=== PATIENT | female | born 1985 | race Caucasian/White ===

== ENCOUNTER 2017-10-27 16:19 | Inpatient (IN) | payer MEDICAID ==
[2017-10-27] VITALS (68 sets, daily range): BP systolic 136; BP diastolic 83; PULSE 59–125; TEMP 98.2–98.4
[~2017-10-27] VITALS: Ht 152.4 cm; Wt 92.5 kg
[2017-10-27] MEDS ORDERED: LACTATED RINGER'S 1000 ML INJ 1,000 ML IV PRN (17:27)
[2017-10-27] MEDS ORDERED: OXYTOCIN 30 UNITS-500ML PREMIX 500 ML IV ONE (17:30)
[2017-10-27] MEDS ORDERED: LIDOCAINE HCL 1% 50 ML VIAL I-DERMAL PRN (17:30)
[2017-10-27] MEDS ORDERED: SODIUM CHLORID 0.9% 500 ML INJ 500 ML IV PRN (17:30)
[2017-10-27] MEDS ORDERED: ONDANSETRON ODT 4 MG TAB PO PRN (17:30)
[2017-10-27] MEDS ORDERED: LIDOCAINE HCL 1% 50 ML VIAL INFIL PRN (17:30)
[2017-10-27] MEDS ORDERED: OXYTOCIN 30 UNITS-500ML PREMIX 500 ML IV PRN (17:30)
[2017-10-27] MEDS: LACTATED RINGER'S 1000 ML INJ 1,000 ML IV SCH (17:32)
[2017-10-27] MEDS ORDERED: SODIUM CHLOR 0.9% 1000 ML INJ 1,000 ML IV PRN (17:47)
--- NOTE | 2017-10-27 18:30 | HHI.HP ---
HPI Chief Complaint Rupture of membranes Date Seen: October 27, 2017 Travel History International Travel<30 Days: No Contact w/Intl Traveler<30Days: No Known Affected Area: No History of Present Illness HPI 32-year-old G1 at 39 weeks and 2 days by a 12 week ultrasound with estimated due date of 11/01/2017 here today for rupture membranes, she says that she has been leaking since 6 AM today, however upon presentation her water grossly ruptured at 4:45 PM, she has occasional contractions that are painful, no heavy vaginal bleeding, no fever chills, denies headache, epigastric pain or right upper quadrant pain. Her has been uncomplicated per her report, the ACOG scanned in records are somewhat indecipherable due to handwriting History Past Medical History Narrative Medical None Obstetric History Obstetric History G1 Past Surgical History Narrative Surgical None Family History Narrative Family History None pertinent Social History Alcohol Use: No Tobacco Use: No Substance Abuse: No Allergies-Medications (Allergen,Severity, Reaction): Coded Allergies: No Known Allergies (Verified Allergy, Unknown, 10/27/17) Narrative Medication vitamin Review of Systems General / Constitutional: No: Fever, Weight Gain, Chills, Other Eyes: No: Diploplia, Blurred Vision, Visual changes, Pain, Photophobia HENT: No: Headaches, Vertigo, Lightheadedness Cardiovascular: No: Irregular Rhythm, Chest Pain or Discomfort, Palpitations, Tachycardia, Syncope, Varicosities, Edema, Cyanosis Respiratory: No: Cough, Short of Breath, Other Gastrointestinal: No: Nausea, Vomiting, Diarrhea Genitourinary: No: Decreased Urinary Output, Oliguria Musculoskeletal: No: Limited ROM, Weakness, Cramping, Edema, Pain Skin: No Rash, No Itching, No Dryness, No Lumps, No Change in Pigmentation, No Change in Nails, No Alopecia, No Lesions Neurologic: No: Weakness, Dizziness, Syncope, Focal Abnormalities, Coordination Problem, Headache, Slurred Speech, Seizures Psychiatric: No: Depression, Suicidal Ideations, Homicidal Ideation Endocrine: No: Heat Intolerance, Cold Intolerance, Polydipsia, Polyuria, Other Physical Exam Vital Signs Date Time Temp Pulse Resp B/P (MAP) Pulse Ox O2 Delivery O2 Flow Rate FiO2 10/27/17 17:55 88 10/27/17 17:50 89 10/27/17 17:45 91 5/18/18 17:40 89 10/27/17 17:35 90 10/27/17 17:30 97 10/27/17 17:25 92 10/27/17 17:20 89 Narrative Vitals: Temperature 98.1, pulse 90, respiratory rate 18, blood pressure 150/86 GENERAL: Well-nourished, well-developed patient. SKIN: Warm and dry. HEAD: Normocephalic and atraumatic. EYES: No scleral icterus. No injection or drainage. ENT: No nasal drainage noted. Mucous membranes pink. Airway patent. NECK: Supple, trachea midline. No JVD. CARDIOVASCULAR: Regular rate and rhythm without murmurs, gallops, or rubs. RESPIRATORY: Breath sounds equal bilaterally. No accessory muscle use. ABDOMEN/GI: Abdomen soft, non-tender, bowel sounds present, no rebound, no guarding Gravid GENITOURINARY: Grossly ruptured, 3 cm/70% effaced/-2 station, BS of 7, FHT's: 120s, moderate variability, accelerations present, no decelerations Tocometry: Contractions every 8 minutes EXTREMITIES: No cyanosis or edema. BACK: Nontender without obvious deformity. No CVA tenderness. NEUROLOGICAL: Awake and alert. Motor and sensory grossly within normal limits. Normal speech. Caprini VTE Risk Assessment Caprini VTE Risk Assessment: Mod/High Risk (score >= 2) Caprini Risk Assessment Model Point Value = 1 Point Value = 2 Point Value = 3 Point Value = 5 Age 41-60 Minor surgery BMI > 25 kg/m2 Swollen legs Varicose veins or History of unexplained or recurrent spontaneous Oral contraceptives or hormone replacement Sepsis (< 1 month) Serious lung disease, including pneumonia (< 1 month) Abnormal pulmonary function Acute myocardial infarction Congestive heart failure (< 1 month) History of inflammatory bowel disease Medical patient at bed rest Age 61-74 Arthroscopic surgery Major open surgery (> 45 min) Laparoscopic surgery (> 45 min) Malignancy Confined to bed (> 72 hours) Immobilizing plaster cast Central venous access Age >= 75 History of VTE Family history of VTE Factor V Leiden Prothrombin [id number] Lupus anticoagulant Anticardiolipin antibodies Elevated serum homocysteine Heparin-induced thrombocytopenia Other congenital or acquired thrombophilia Stroke (< 1 month) Elective arthroplasty Hip, pelvis, or leg fracture Acute spinal cord injury (< 1 month) Prophylaxis Regimen Total Risk Factor Score Risk Level Prophylaxis Regimen 0-1 Low Early ambulation 2 Moderate Order ONE of the following: *Sequential Compression Device (SCD) *Heparin 5000 units SQ BID 3-4 Higher Order ONE of the following medications: *Heparin 5000 units SQ TID *Enoxaparin/Lovenox 40 mg SQ daily (WT < 150 kg, CrCl > 30 mL/min) *Enoxaparin/Lovenox 30 mg SQ daily (WT < 150 kg, CrCl > 10-29 mL/min) *Enoxaparin/Lovenox 30 mg SQ BID (WT < 150 kg, CrCl > 30 mL/min) AND/OR *Sequential Compression Device (SCD) 5 or more Highest Order ONE of the following medications: *Heparin 5000 units SQ TID (Preferred with Epidurals) *Enoxaparin/Lovenox 40 mg SQ daily (WT < 150 kg, CrCl > 30 mL/min) *Enoxaparin/Lovenox 30 mg SQ daily (WT < 150 kg, CrCl > 10-29 mL/min) *Enoxaparin/Lovenox 30 mg SQ BID (WT < 150 kg, CrCl > 30 mL/min) AND *Sequential Compression Device (SCD) Data Data Vital Signs Reviewed: Yes Orders Orders Ob (2e) Additional Admit Info (10/27/17 16:36) Intake + Output Q6H (10/27/17 17:26) Notify Parameters (10/27/17 17:) Cbc No Diff, Includes Plts (10/28/17 06:00) Comprehensive Metabolic Panel (10/28/17 06:00) Protein Creat Ratio, Random Ur (10/27/17 17:26) Admit To Inpatient (10/27/17 ) Code Status (10/27/17 17:27) Vital Signs (Adult) .Per protocol (10/27/17 17:) Heart (10/27/17:) Amnioinfusion (10/27/17 17:) Urinary Catheter Management .ONCE (10/27/17 17:) Diet Liquid (10/27/17 Dinner) Lactated Ringer's 1000 Ml Inj (Lr 1000 M (10/27/17 17:27) Lactated Ringer's 1000 Ml Inj (Lr 1000 M (10/27/17 17:27) Sodium Chlorid 0.9% 500 Ml Inj (Ns 500 M (10/27/17 17:30) Sodium Chlor 0.9% 1000 Ml Inj (Ns 1000 M (10/27/17 17:47) Lidocaine 1% Inj (50 Ml) (Xylocaine 1% I (10/27/17 17:30) Fentanyl Inj (Fentanyl Inj) (10/27/17 17:30) Fentanyl Inj (Fentanyl Inj) (10/27/17 17:30) Hold Clot (10/27/17:) Abo/Rh Blood Type (10/27/17:) Ob/Psych Drug Screen, Urine (10/27/17) Type And Screen (10/27/17) Resp Oxygen Non Rebreathe Mask (10/27/17 ) ^ Epidural / Intrathecal Infus (10/27/17:) Oxytocin 30 Units-500ml Premix (Pitocin (10/27/17 17:30) Lidocaine 1% Inj (50 Ml) (Xylocaine 1% I (10/27/17 17:) Light Mineral Oil (Muri-Lube Oil) (10/27/17 17:30) Inpatient Certification (10/27/17 ) Specimen To Be Collected PRN (10/27/17:) Ondansetron Odt (Zofran Odt) (10/27/17 17:30) ^ Non Stress Test (10/27/17:29) Response To Medication .Post New Med Administration, Reaction (10/27/17 17:29) ^ Discontinue Medication (10/27/17:) Oxytocin 30 Units-500ml Premix (Pitocin (10/27/17 17:30) Group B Strep: Negative Labs Laboratory Tests Test 10/27/17 17: Urine Random Creatinine 34 Urine Random Total Protein 9 Urine Protein/Creatinine Ratio 0.26 Urine Opiates Screen NEG Urine Barbiturates Screen NEG Urine Amphetamines Screen NEG Urine Benzodiazepines Screen NEG Urine Cocaine Screen NEG Urine Cannabinoids Screen NEG labs Blood type O-, antibody negative, baseline hemoglobin 13.1, varicella immune, rubella immune, VDRL nonreactive, urine culture not indicated, hepatitis B surface antigen nonreactive, HIV negative, gonorrhea and chlamydia negative, cystic fibrosis screening negative, quad screen negative, sickle cell screen negative, UDS negative, TSH 0.36. One-hour Glucola 132, GBS negative. Assessment/Plan Assessment and Plan 32-year-old G1 at 39w2d by 12w US (SAL 11/01/2017), pt goes by "Mary Beth" her FOB is Shadi 1. IUP: Category 1 tracing -Cephalic by exam, GBS negative, EFW 8 pounds -Male fetus - EFW (10/18) = 3488g (84%), AC 79%, Ant placenta. 2. SROM/labor: BS of 7, patient appears comfortable in bed, rare contractions, discussed expectant management and my recommendation for augmentation, patient desires to wait at this time, suggested 4 hours and if no change begin Pitocin. Clear liquids 3. Rh negative: Patient states she is status post program at around 28 weeks. 4. Elevated blood pressure: No issues with blood pressure outside of or during this up to this point, patient has no signs or symptoms of preeclampsia, will collect HELLP labs and P:C. Continue to trend blood pressures, discussed severe criteria and possible need for magnesium for blood pressure interventions. Ryland Serrano MD October 27, 2017 18:30
[2017-10-27 19:35] LABS: HEMATOCRIT 36.6 % (35.0-46.0); HEMOGLOBIN 12.3 GM/DL (11.6-15.3); MEAN CELL VOLUME 89.4 FL (80.0-100.0); MEAN CORPUSCULAR HEMOGLOBIN 30.1 PG (27.0-34.0); MEAN CORPUSCULAR HGB CONC 33.7 % (32.0-36.0); MEAN PLATELET VOLUME 10.7 FL (7.0-11.0); PLATELET COUNT 213 TH/MM3 (150-450); RED CELL DISTRIBUTION WIDTH 12.6 % (11.6-17.2); WHITE BLOOD COUNT 13.9 TH/MM3 (4.0-11.0)
[2017-10-27 20:03] LABS: ALBUMIN 2.9 GM/DL (3.4-5.0); AST (GOT) 22 U/L (15-37); BLOOD UREA NITROGEN 8 MG/DL (7-18); CALCIUM 8.7 MG/DL (8.5-10.1); CHLORIDE 109 MEQ/L (98-107); CREATININE 0.61 MG/DL (0.50-1.00); GLOMERULAR FILTRATION RATE 114 ML/MIN (>89); GLUCOSE,RANDOM 74 MG/DL (74-106); SODIUM (NA) 142 MEQ/L (136-145)
[2017-10-27 20:04] LABS: ALT (GPT) 21 U/L (10-53)
[2017-10-27 20:06] LABS: ALKALINE PHOSPHATASE 140 U/L (45-117); TOTAL BILIRUBIN ADULT 0.3 MG/DL (0.2-1.0)
[2017-10-27] MEDS ORDERED: fentaNYL 2MCG-BUPIV 0.125% INJ 100 ML ONE (23:58)
[2017-10-27] MEDS ORDERED: ePHEDrine/NS 25 MG/5 ML SYRINGE ONE (23:58)
[2017-10-28] VITALS (100 sets, daily range): BP systolic 95–156; BP diastolic 61–94; PULSE 68–148; RESP 16–20; TEMP 97.7–98.7; O2SAT 97–100
[2017-10-28] MEDS: LACTATED RINGER'S 1000 ML INJ 1,000 ML IV SCH ×2 (00:03→01:04)
[2017-10-28] MEDS ORDERED: BUPIVACAINE HCL PF 0.25% 10 ML VIAL ONE (00:10)
[2017-10-28] MEDS ORDERED: ePHEDrine/NS 25 MG/5 ML SYRINGE ONE (00:11)
[2017-10-28] MEDS ORDERED: fentaNYL 2MCG-BUPIV 0.125% 100 ML EPIDURAL PRN (01:15)
[2017-10-28] MEDS ORDERED: ePHEDrine/NS 25 MG/5 ML SYRINGE IV PUSH PRN (01:15)
[2017-10-28] MEDS ORDERED: DO NOT ADMINISTER ANTICOAGULANTS PRN (01:15)
[2017-10-28] MEDS ORDERED: NO SYSTEM NARCOTICS PRN (01:15)
[2017-10-28] MEDS ORDERED: LIDOCAINE HCL 1% PF 30 ML VIAL ONE (04:51)
[2017-10-28] MEDS: MINERAL OIL 10 ML VIAL TOPICAL PRN (06:38)
[2017-10-28] MEDS ORDERED: IBUP-232 PO (06:58)
--- NOTE | 2017-10-28 06:58 | HHI.DCPOC ---
Discharge Care Plan Diagnosis: (1) 39 weeks gestation of (2) Normal vaginal delivery Your Health Problems Are: Vaginal delivery Report Symptoms to Your Doctor -Temperature above 100.5 degrees -Redness, of incision or excessive or foul smelling drainage -Unusual pain or calf pain -Increased vaginal bleeding -Painful or difficulty urinating -Feelings of extreme sadness or anxiety after 2 weeks Goals to Promote Your Health * To prevent worsening of your condition and complications * To maintain your health at the optimal level Directions to Meet Your Goals Take your medications as prescribed Follow your dietary instruction Follow activity as directed Ensure plenty of rest for recovery Drink fluids for hydration Keep your appointments as scheduled Take your immunizations and boosters as scheduled If your symptoms worsen call your PCP, if no PCP go to Urgent Care Center or Emergency Room Smoking is Dangerous to Your Health. Avoid second hand smoke Call the 24-hour crisis hotline for domestic abuse at Ryland Serrano MD October 28, 2017 06:58
[2017-10-28] MEDS ORDERED: oxyCODONE/ACETAMINOPHEN 5 MG/325 MG TAB PO PRN ×2 (07:00)
[2017-10-28] MEDS ORDERED: SODIUM CHLORIDE 0.9% FLUSH 10 ML FLUSH IV FLUSH PRN (07:00)
[2017-10-28] MEDS ORDERED: ZOLPIDEM TARTRATE 5 MG TAB PO PRN (07:00)
[2017-10-28] MEDS ORDERED: BENZOCAINE 20% TOPICAL SPRAY 60 ML CAN TOPICAL PRN (07:00)
[2017-10-28] MEDS ORDERED: ALUMINUM/MAGNESIUM/SIMETH 30 ML CUP PO PRN (07:00)
[2017-10-28] MEDS ORDERED: ONDANSETRON ODT 4 MG TAB PO PRN (07:00)
[2017-10-28] MEDS ORDERED: WITCH HAZEL 50%/GLYCERIN 12.5% 40 PAD JAR TOPICAL PRN (07:00)
[2017-10-28] MEDS ORDERED: OXYTOCIN 30 UNITS-500ML PREMIX 500 ML IV SCH (07:00)
--- NOTE | 2017-10-28 07:03 | PD.OB.DELI ---
Weeks gestation: 39 (39 weeks and 3 days) Pt started active labor?: Yes Medical induction of labor?: No Artificial rupture of membrane: No Anesthesia: Epidural, Lidocaine local to perineum (5 cc of 1% lidocaine without epinephrine) Episiotomy: None Vaginal Delivery: Normal, Spontaneous Presentation: Occiput anterior, Vertex Nuchal Cord: x1 (Reduced after delivery) Delayed cord clamping (45 sec): Yes Shoulder Dystocia: Other (No dystocia) : Male, Single Delivery date: October 28, 2017 Delivery time: 06:25 One Minute : 8 Five Minute : 9 Weight: 7 lbs. 14 oz. Placenta: Spontaneous delivery, Intact, 3 vessel cord Laceration: 1 deg (In addition to first-degree, a periurethral laceration that extended cephalad towards the clitoral granger and slightly into the urethral meatus) Repair: Vicryl running Estimated blood loss: 300cc Additional Information Diagnoses: 1. Intrauterine at 39 weeks and 3 days 2. Rh negative 3. Gestational hypertension Counts: Correct 2 at the end of the procedure Description of procedure: The patient began pushing after the bed was broken down, the head upon was allowed to restitute naturally for delivery with a supported perineum, with gentle downward guidance the anterior shoulder was delivered followed by gentle upper guidance for the posterior shoulder, the torso and lower extremities were delivered with ease and with continued perineal support. The had spontaneous cry and was placed on mom's abdomen for skin to skin contact, we allowed delayed cord clamping. After the cord was clamped and cut, cord blood was obtained. Pitocin was bolused and with fundal massage the placenta was delivered, there is minimal uterine bleeding and uterus was firm. The perineum, vagina and cervix were inspected and found a first-degree which was repaired in typical fashion, the periurethral was repaired after sterilely placing a red rubber catheter prior to the repair the urethra was patent and repair hemostatic following. The patient tolerated the procedure well and was left in the birthing suite with her . Ryland Serrano MD October 28, 2017 07:03
[2017-10-28] MEDS: SODIUM CHLORIDE 0.9% FLUSH 10 ML FLUSH IV FLUSH SCH ×2 (09:00→21:14)
[2017-10-28] MEDS: IBUPROFEN 800 MG TAB PO PRN ×2 (09:55→18:11)
[2017-10-28] MEDS ORDERED: MEASLES, MUMPS, RUBELLA VACCINE 0.5 ML VIAL SQ ONE (16:00)
[2017-10-28] MEDS ORDERED: DIPHTH/TETANUS/ACEL PERTUSSIS (BOOSTER) 0.5 ML VIAL/PFS IM ONE (16:00)
[2017-10-28] MEDS: ACETAMINOPHEN 325 MG TAB PO PRN (16:51)
[2017-10-28] MEDS: DOCUSATE SODIUM 50 MG/SENNA 8.6 MG TAB PO PRN (21:13)
[2017-10-29] MEDS: SODIUM CHLORIDE 0.9% FLUSH 10 ML FLUSH IV FLUSH SCH (09:00)
--- NOTE | 2017-10-29 09:29 | HHI.OB ---
Subjective Post Day: 1 Remarks doing well, pain controlled, VB < menses, no complaints, denies JAIMES, blurry vision, epigastric pain or RUQ pain. Objective Vitals/I&O Vital Signs Date Time Temp Pulse Resp B/P (MAP) Pulse Ox O2 Delivery O2 Flow Rate FiO2 10/28/17 23:22 83 142/79 (100) 10/28/17 23:22 98.3 18 97 10/28/17 20:30 98.3 86 18 143/85 (104) 97 Objective Remarks GENERAL: Well-nourished, well-developed patient. CARDIOVASCULAR: Regular rate and rhythm without murmurs, gallops, or rubs. RESPIRATORY: Breath sounds equal bilaterally. No accessory muscle use. ABDOMEN/GI: Abdomen soft, non-tender. Fundus: Firm, non-tender at umbilicus. GENITOURINARY: Light to moderate bleeding. EXTREMITIES: No cyanosis or edema, non-tender, without signs of DVT. Medications and IVs Current Medications Medications (Trade) Dose Ordered Sig/Renée Route Start Time Stop Time Status Last Admin (NS Flush) 2 ml BID IV FLUSH 10/28/17 09:00 10/28/17 21:14 (NS Flush) 2 ml UNSCH PRN IV FLUSH 10/28/17 07:00 (Tylenol) 650 mg Q4H PRN PO 10/28/17 07:00 10/28/17 16:51 (Motrin) 800 mg Q8H PRN PO 10/28/17 07:00 10/28/17 18:11 (Percocet 5-325 Mg) 1 tab Q4H PRN PO 10/28/17 07:00 (Percocet 5-325 Mg) 2 tab Q4H PRN PO 10/28/17 07:00 (Americaine 20% Top Spr) 1 spray Q4H PRN TOPICAL 10/28/17 07:00 10/28/17 18:11 (Tucks Pads) 1 applic QID PRN TOPICAL 10/28/17 07:00 10/28/17 18:11 (Ingrid-Colace) 2 tab Q12H PRN PO 10/28/17 07:00 10/28/17 21:13 (Ambien) 5 mg HS PRN PO 10/28/17 07:00 (Mag-Al Plus Susp Liq) 15 ml Q8H PRN PO 10/28/17 07:00 (Zofran Odt) 4 mg Q6H PRN PO 10/28/17 07:00 Assessment/Plan Assessment and Plan 32-year-old s/p at 39w2d 1. PPD #1: AF, VSS, discussed expectations, precautions and follow up. May d/c home today if baby cleared, if not then d/c tomorrow. -Male fetus, does not desire circ 2. GHTN: BPs mild range / normotensive since delivery, discussed PREC precautions, FU 1 week for visit in office. 3. Rh negative: Rhogam per protocol Ryland Serrano MD October 29, 2017 09:29
[2017-10-29] MEDS: IBUPROFEN 800 MG TAB PO PRN ×2 (14:07→22:49)
[2017-10-29 16:05] VITALS: BP 143/86; PULSE 77; RESP 16; TEMP 98.2; O2SAT 99
[2017-10-29] MEDS: DOCUSATE SODIUM 50 MG/SENNA 8.6 MG TAB PO PRN (21:02)
[2017-10-30] MEDS: ACETAMINOPHEN 325 MG TAB PO PRN ×2 (00:52→07:31)
[2017-10-30] MEDS: IBUPROFEN 800 MG TAB PO PRN (07:31)
--- NOTE | 2017-10-30 08:53 | HHI.OB ---
Subjective Post Day: 2 Remarks PPD#2 ; Stable cleared for d/c home Objective Vitals/I&O Vital Signs Date Time Temp Pulse Resp B/P (MAP) Pulse Ox O2 Delivery O2 Flow Rate FiO2 10/29/17 16:05 98.2 77 16 143/86 99 Objective Remarks GENERAL: Well-nourished, well-developed patient. CARDIOVASCULAR: Regular rate and rhythm without murmurs, gallops, or rubs. RESPIRATORY: Breath sounds equal bilaterally. No accessory muscle use. ABDOMEN/GI: Abdomen soft, non-tender. Fundus: Firm, non-tender at umbilicus. GENITOURINARY: Light to moderate bleeding. EXTREMITIES: No cyanosis or edema, non-tender, without signs of DVT. Medications and IVs Current Medications Medications (Trade) Dose Ordered Sig/Renée Route Start Time Stop Time Status Last Admin (NS Flush) 2 ml BID IV FLUSH 10/28/17 09:00 10/28/17 21:14 (NS Flush) 2 ml UNSCH PRN IV FLUSH 10/28/17 07:00 (Tylenol) 650 mg Q4H PRN PO 10/28/17 07:00 10/30/17 07:31 (Motrin) 800 mg Q8H PRN PO 10/28/17 07:00 10/30/17 07:31 (Percocet 5-325 Mg) 1 tab Q4H PRN PO 10/28/17 07:00 (Percocet 5-325 Mg) 2 tab Q4H PRN PO 10/28/17 07:00 (Americaine 20% Top Spr) 1 spray Q4H PRN TOPICAL 10/28/17 07:00 10/28/17 18:11 (Tucks Pads) 1 applic QID PRN TOPICAL 10/28/17 07:00 10/28/17 18:11 (Ingrid-Colace) 2 tab Q12H PRN PO 10/28/17 07:00 10/29/17 21:02 (Ambien) 5 mg HS PRN PO 10/28/17 07:00 (Mag-Al Plus Susp Liq) 15 ml Q8H PRN PO 10/28/17 07:00 (Zofran Odt) 4 mg Q6H PRN PO 10/28/17 07:00 Assessment/Plan Assessment and Plan 32-year-old s/p at 39w2d 1. PPD #1: AF, VSS, discussed expectations, precautions and follow up. May d/c home today if baby cleared, if not then d/c tomorrow. -Male fetus, does not desire circ 2. GHTN: BPs mild range / normotensive since delivery, discussed PREC precautions, FU 1 week for visit in office. 3. Rh negative: Rhogam per protocol 10/30/17; PPD#2, Stable ,plan discharge to home, RTO in 6 weeks Discharge Planning routine Attending Attestation seen by Carl Robb MD October 30, 2017 08:53
== END 2017-10-30 11:06 | disposition home or self-care (01) | DRG 775 ==
LOC: HOBED 16:19 → H2EB 16:39 → H1EA 10-28 08:24
PROVIDERS: ADMIT Obstetrics & Gynecology; ATTEND Obstetrics & Gynecology
PROC: 10E0XZZ Delivery of Products of Conception, External Approach (ICD-10-PCS; principal; 2017-10-28)
PROC: 0UQJXZZ Repair Clitoris, External Approach (ICD-10-PCS; 2017-10-28)
PROC: 0TQD7ZZ Repair Urethra, Via Natural or Artificial Opening (ICD-10-PCS; 2017-10-28)
PROC: 0HQ9XZZ Repair Perineum Skin, External Approach (ICD-10-PCS; 2017-10-28)
DX: O69.81X0 Labor and delivery complicated by cord around neck, without compression, not applicable or unspecified (principal); O71.5 Other obstetric injury to pelvic organs; O71.82 Other specified trauma to perineum and vulva; O13.4 Gestational [pregnancy-induced] hypertension without significant proteinuria, complicating childbirth; Z37.0 Single live birth; Z3A.39 39 weeks gestation of pregnancy
CPT/HCPCS: 59025; 80053; 80307; 82570; 84156; 85027; 85461; 86850; 86900; 86901; 90384; 99283; G0481; J2590; J2790; J7120